=== PATIENT | female | born 1950 | race Two or more races ===

== ENCOUNTER 2022-06-06 12:42 | Outpatient (CLI) | payer OTHER | END 2022-06-06 13:01 | disposition home or self-care (01) | LOC: MRI 12:42 | PROVIDERS: ATTEND Physical Medicine & Rehabilitation | DX: M25.512 Pain in left shoulder (principal); M75.102 Unspecified rotator cuff tear or rupture of left shoulder, not specified as traumatic | CPT/HCPCS: 73221 ==